=== PATIENT | female | born 1975 ===

== ENCOUNTER 2021-01-24 10:45 | Inpatient (IN) | payer OTHER ==
[~2021-01-24] VITALS: Ht 157.5 cm; Wt 54.4 kg
[2021-01-30] MEDS ORDERED: MEDROXYPRO150 MG/11 IM (08:16)
[2021-02-01] MEDS ORDERED: IBUPROFEN800 MG PO (07:36)
[2021-02-01] MEDS ORDERED: CLEOCIN HCL300 MG PO (07:36)
[2021-02-01] MEDS ORDERED: OXYC1TAB9 PO (07:36)
== END 2021-02-01 11:07 | disposition home or self-care (01) | DRG 743 ==
LOC: SURH 01-30 07:00 → OB/GYN 01-30 07:03 → O/R 01-30 07:03 → SURH 01-30 10:45 → OB/GYN 01-30 14:13
PROVIDERS: ADMIT Obstetrics & Gynecology Gynecology; ATTEND Obstetrics & Gynecology Gynecology
PROC: 0UB70ZZ Excision of Bilateral Fallopian Tubes, Open Approach (ICD-10-PCS; 2021-01-30)
PROC: 0USG0ZZ Reposition Vagina, Open Approach (ICD-10-PCS; 2021-01-30)
PROC: 0UT90ZZ Resection of Uterus, Open Approach (ICD-10-PCS; principal; 2021-01-30 07:00)
DX: D25.1 Intramural leiomyoma of uterus (principal); D25.2 Subserosal leiomyoma of uterus; N80.0 Endometriosis of uterus; N92.0 Excessive and frequent menstruation with regular cycle